=== PATIENT | female | born 1995 | race Two or more races ===

== ENCOUNTER 2021-06-16 05:19 | Inpatient (IN) | payer MEDICAID ==
[~2021-06-16] VITALS: Ht 170.2 cm; Wt 67.5 kg
[2021-06-16 07:30] LABS: COVID AG,FIA SOURCE NASOPHARYNGEAL
[2021-06-16 07:46] LABS: BASOPHILS % (AUTO) 0.6 % (0.0-2.0); EOSINOPHILS % (AUTO) 0.5 % (1.0-6.0); HEMOGLOBIN 14.4 g/dL (12.0-16.0); LYMPHOCYTES # (AUTO) 0.8 K/uL (1.0-4.8); LYMPHOCYTES % (AUTO) 9.9 % (22.0-44.0); MEAN CORPUSCULAR HEMOGLOBIN 30.5 pg (26.0-34.0); MEAN CORPUSCULAR HGB CONC 34.3 G/dL (31.0-37.0); MEAN CORPUSCULAR VOLUME 89 fL (80-100); MONOCYTES # (AUTO) 0.3 K/uL (0.1-1.0); MONOCYTES % (AUTO) 3.8 % (2.0-9.0); NEUTROPHILS # (AUTO) 7.3 K/uL (1.8-7.7); PLATELET COUNT (AUTO) 256 K/uL (150-450); RED BLOOD CELL COUNT(AUTO) 4.71 MIL/uL (4.00-5.20); RED CELL DISTRIBUTION WIDTH 13.2 % (11.5-14.5)
[2021-06-16 07:50] LABS: NEUTROPHILS % (AUTO) 85.2 % (40.0-70.0)
[2021-06-16 07:53] LABS: CALCIUM, TOTAL 9.5 mg/dL (8.8-10.5); CARBON DIOXIDE 25 mmol/L (22-29); CHLORIDE 103 mmol/L (98-107); GLOMERULAR FILTR. RATE CALC > 60 mL/min (>60); GLUCOSE,RANDOM 94 mg/dL (70-110); UREA NITROGEN, BLOOD 15 mg/dL (7-18)
[2021-06-16 07:59] LABS: APPEARANCE,URINE CLOUDY (CLEAR); BILIRUBIN,URINE NEGATIVE (NEGATIVE); GLUCOSE, URINE (UA) NEGATIVE (NEGATIVE); KETONES,URINE >=80 mg/dL (NEGATIVE); LEUKOCYTE ESTERASE ,URINE TRACE (NEGATIVE); NITRATE,URINE POSITIVE (NEGATIVE); OCCULT BLOOD,URINE TRACE (NEGATIVE); PROTEIN,URINE SEE CONFIRM (NEGATIVE); UROBILINOGEN,URINE 0.2 mg/dL (<=1.0)
[2021-06-16 08:08] LABS: ALANINE AMINOTRANSFERASE 21 U/L (12-78); ALBUMIN 4.6 g/dL (3.4-5.0); ALKALINE PHOSPHATASE 65 U/L (46-116); ANION GAP 12 mmol/L (8-16); ASPARTATE AMINOTRANSFERASE 16 U/L (15-37); BILIRUBIN,TOTAL 0.4 mg/dL (0.1-1.0); FREE T4 (FREE THYROXINE) 1.24 ng/dL (0.76-1.46); HCG,QUANTITATIVE < 1 mIU/mL (0-6); POTASSIUM 3.8 mmol/L (3.5-5.1); SODIUM SERUM 140 mmol/L (136-145); THYROID STIMULATING HORMONE 0.93 uIU/mL (0.36-3.74)
[2021-06-16 08:10] LABS: SULFOSALICYLIC ACID,URINE Trace (Negative)
[2021-06-16 08:12] LABS: BACTERIA,URINE Moderate /HPF (None Seen); SQUAMOUS EPITHELIAL CELL,UR Few /LPF (None Seen)
[2021-06-16 08:22] LABS: AMPHET/METH SCREEN,URINE NEGATIVE (NEGATIVE); BARBITURATE SCREEN, URINE NEGATIVE (NEGATIVE); BENZODIAZEPINES SCREEN,URINE NEGATIVE (NEGATIVE); CANNABINOID SCREEN,URINE POSITIVE (NEGATIVE); COCAINE SCREEN,URINE NEGATIVE (NEGATIVE); METHADONE SCREEN, URINE NEGATIVE (NEGATIVE); OPIATE SCREEN,URINE NEGATIVE (NEGATIVE)
[2021-06-16 08:23] LABS: PHENCYCLIDINE SCREEN,URINE NEGATIVE (NEGATIVE)
[2021-06-16] MEDS ORDERED: LORazepam 2 MG TABLET PO ONE (08:30)
[2021-06-16] MEDS ORDERED: NITROFURANTOIN/NITROFURAN MAC 100 MG CAPSULE [MACROBID] PO ONE (08:30)
[2021-06-16] MEDS ORDERED: INFLUENZA VIRUS VACCINE QVS 2021-22 (6MO+)/PF 60 MCG/0.5 ML SYRINGE IM. ONE (13:30)
[2021-06-16 16:20] VITALS: BP 131/77
[2021-06-16] MEDS ORDERED: PETROLATUM,WHITE 28 GM JELLY TP PRN (16:30)
[2021-06-16] MEDS ORDERED: LOPERAMIDE HCL 2 MG CAPSULE PO PRN (16:30)
[2021-06-16] MEDS ORDERED: CloNIDine HCL 0.1 MG TABLET PO PRN (16:30)
[2021-06-16] MEDS ORDERED: ALBUTEROL SULFATE HFA 90 MCG/PUFF 8 GM INHALER IH PRN (16:30)
[2021-06-16] MEDS ORDERED: MAG HYDROX/AL HYDROX/SIMETH ES 30 ML SUSPENSION UDCUP PO PRN (16:30)
[2021-06-16] MEDS ORDERED: GuaiFENesin/D-METHORPHAN [SUGAR-FREE] 200-20MG/10 ML SYRUP UDCUP PO PRN (16:30)
[2021-06-16] MEDS ORDERED: DOCUSATE SODIUM 100 MG CAPSULE PO PRN (16:30)
[2021-06-16] MEDS: NITROFURANTOIN/NITROFURAN MAC 100 MG CAPSULE [MACROBID] PO SCH (16:51)
[2021-06-17 01:00] VITALS: BP 128/82
[2021-06-17 08:39] VITALS: BP 108/77
[2021-06-17] MEDS: NITROFURANTOIN/NITROFURAN MAC 100 MG CAPSULE [MACROBID] PO SCH ×2 (09:40→16:27)
[2021-06-17] MEDS: ARIPiprazole 10 MG TABLET PO SCH ×2 (09:42→09:45)
[2021-06-17 16:18] VITALS: BP 129/79
[2021-06-18 00:39] VITALS: BP 130/81
[2021-06-18] MEDS: LORazepam 2 MG TABLET PO PRN ×2 (05:28→18:32)
[2021-06-18] MEDS: HALOPERIDOL 5 MG TABLET PO PRN ×2 (05:34→20:14)
[2021-06-18 08:36] VITALS: BP 112/70
[2021-06-18] MEDS: NITROFURANTOIN/NITROFURAN MAC 100 MG CAPSULE [MACROBID] PO SCH ×2 (08:58→16:42)
[2021-06-18 17:55] VITALS: BP 109/68
[2021-06-19 00:46] VITALS: BP 115/70
[2021-06-19] MEDS: LORazepam 2 MG TABLET PO PRN ×3 (01:09→21:00)
[2021-06-19 08:20] VITALS: BP 122/64
[2021-06-19] MEDS: NITROFURANTOIN/NITROFURAN MAC 100 MG CAPSULE [MACROBID] PO SCH ×2 (08:43→17:00)
[2021-06-19] MEDS: ARIPiprazole 10 MG TABLET PO SCH (08:44)
[2021-06-19 16:18] VITALS: BP 125/76
[2021-06-20 05:30] VITALS: BP 112/68
[2021-06-20] MEDS: LORazepam 2 MG TABLET PO PRN (05:56)
[2021-06-20] MEDS: HALOPERIDOL 5 MG TABLET PO PRN (05:56)
[2021-06-20] MEDS: MAGNESIUM HYDROXIDE SUSPENSION 30 ML UDCUP PO PRN (06:39)
[2021-06-20 08:25] VITALS: BP 115/74
[2021-06-20] MEDS: NITROFURANTOIN/NITROFURAN MAC 100 MG CAPSULE [MACROBID] PO SCH ×2 (08:50→16:58)
[2021-06-20] MEDS: ARIPiprazole 10 MG TABLET PO SCH (08:50)
[2021-06-20 16:27] VITALS: BP 102/65
[2021-06-20] MEDS: IBUPROFEN 400 MG TABLET PO PRN (21:22)
[2021-06-20] MEDS ORDERED: DiphenhydrAMINE HCL 50 MG/ML VIAL ONE (23:16)
[2021-06-20] MEDS ORDERED: HALOPERIDOL LACTATE 5 MG/ML VIAL ONE (23:16)
[2021-06-20] MEDS ORDERED: LORazepam 2 MG/ML VIAL ONE (23:16)
[2021-06-20] MEDS ORDERED: LORazepam 2 MG/ML VIAL IM ONE (23:30)
[2021-06-20] MEDS ORDERED: DiphenhydrAMINE HCL 50 MG/ML VIAL IM ONE (23:30)
[2021-06-20] MEDS ORDERED: HALOPERIDOL LACTATE 5 MG/ML VIAL IM ONE (23:30)
[2021-06-21 06:23] VITALS: BP 105/68
[2021-06-21 07:36] LABS: GLUCOMETER DEV NAME(LOC) POC.BV
[2021-06-21 08:21] VITALS: BP 102/73
[2021-06-21] MEDS: NITROFURANTOIN/NITROFURAN MAC 100 MG CAPSULE [MACROBID] PO SCH ×2 (08:43→16:04)
[2021-06-21] MEDS: ARIPiprazole 10 MG TABLET PO SCH (08:43)
[2021-06-21] MEDS: IBUPROFEN 400 MG TABLET PO PRN (11:03)
[2021-06-21] MEDS: ONDANSETRON HCL 4 MG TABLET PO PRN (11:05)
[2021-06-21] MEDS: LORazepam 2 MG TABLET PO PRN (15:15)
[2021-06-21 16:09] VITALS: BP 105/68
[2021-06-22 00:11] VITALS: BP 132/81
[2021-06-22] MEDS: IBUPROFEN 400 MG TABLET PO PRN (01:55)
[2021-06-22 08:07] VITALS: BP 120/74
[2021-06-22] MEDS: NITROFURANTOIN/NITROFURAN MAC 100 MG CAPSULE [MACROBID] PO SCH ×2 (09:00→16:42)
[2021-06-22] MEDS: ARIPiprazole 10 MG TABLET PO SCH (09:39)
[2021-06-22] MEDS: LORazepam 2 MG TABLET PO PRN (12:58)
[2021-06-22 16:08] VITALS: BP 131/69
[2021-06-22] MEDS: MELATONIN 3 MG TABLET PO SCH ×2 (21:00→21:53)
[2021-06-22] MEDS: ACETAMINOPHEN 325 MG TABLET PO PRN (21:53)
[2021-06-23 04:11] VITALS: BP 125/66
[2021-06-23] MEDS: IBUPROFEN 400 MG TABLET PO PRN (04:12)
[2021-06-23] MEDS: ONDANSETRON HCL 4 MG TABLET PO PRN (05:23)
[2021-06-23] MEDS: ARIPiprazole 10 MG TABLET PO SCH (08:33)
[2021-06-23] MEDS: LORazepam 2 MG TABLET PO PRN ×2 (08:35→19:42)
[2021-06-23] MEDS: NITROFURANTOIN/NITROFURAN MAC 100 MG CAPSULE [MACROBID] PO SCH ×2 (08:39→08:41)
[2021-06-23] MEDS: HALOPERIDOL 5 MG TABLET PO PRN ×2 (10:36→19:42)
[2021-06-23] MEDS ORDERED: DiphenhydrAMINE HCL 50 MG/ML VIAL IM ONE (11:15)
[2021-06-23] MEDS ORDERED: LORazepam 2 MG/ML VIAL IM ONE (11:15)
[2021-06-23] MEDS ORDERED: HALOPERIDOL LACTATE 5 MG/ML VIAL IM ONE (11:15)
[2021-06-23 19:52] VITALS: BP 125/72
[2021-06-23] MEDS: MELATONIN 3 MG TABLET PO SCH (20:32)
[2021-06-24 06:13] VITALS: BP 104/66
[2021-06-24] MEDS: ACETAMINOPHEN 325 MG TABLET PO PRN (06:57)
[2021-06-24 07:57] VITALS: BP 105/57
[2021-06-24] MEDS: ARIPiprazole 10 MG TABLET PO SCH (08:14)
[2021-06-24] MEDS: HALOPERIDOL 5 MG TABLET PO PRN ×2 (08:14→17:20)
[2021-06-24] MEDS: LORazepam 2 MG TABLET PO PRN ×2 (08:14→17:20)
[2021-06-24 08:19] VITALS: BP 105/57
[2021-06-24] MEDS: NICOTINE 14 MG/24 HOUR PATCH TD PRN (10:22)
[2021-06-24] MEDS: ZOLPIDEM TARTRATE 10 MG TABLET PO PRN (20:33)
[2021-06-24] MEDS: MELATONIN 3 MG TABLET PO SCH (20:33)
[2021-06-25] MEDS: ARIPiprazole 15 MG TABLET PO SCH (08:13)
[2021-06-25] MEDS: LORazepam 2 MG TABLET PO PRN ×2 (08:14→18:39)
[2021-06-25] MEDS ORDERED: LORazepam 2 MG/ML VIAL IM ONE (08:30)
[2021-06-25] MEDS ORDERED: DiphenhydrAMINE HCL 50 MG/ML VIAL IM ONE (08:30)
[2021-06-25] MEDS ORDERED: HALOPERIDOL LACTATE 5 MG/ML VIAL IM ONE (08:30)
[2021-06-25 12:37] VITALS: BP 111/83
[2021-06-25 16:35] VITALS: BP 103/66
[2021-06-25] MEDS: HALOPERIDOL 5 MG TABLET PO PRN (18:49)
[2021-06-25] MEDS: NICOTINE 14 MG/24 HOUR PATCH TD PRN (19:28)
[2021-06-25] MEDS: MELATONIN 3 MG TABLET PO SCH (21:00)
[2021-06-26] MEDS: HALOPERIDOL 5 MG TABLET PO PRN ×2 (08:33→16:29)
[2021-06-26] MEDS: ARIPiprazole 15 MG TABLET PO SCH (08:33)
[2021-06-26] MEDS: LORazepam 2 MG TABLET PO PRN ×2 (08:33→16:29)
[2021-06-26 16:32] VITALS: BP 103/63
[2021-06-26] MEDS: MELATONIN 3 MG TABLET PO SCH (20:47)
[2021-06-27 00:30] VITALS: BP 113/77
[2021-06-27] MEDS: ARIPiprazole 15 MG TABLET PO SCH (07:59)
[2021-06-27 08:32] VITALS: BP 128/61
[2021-06-27] MEDS: MAGNESIUM HYDROXIDE SUSPENSION 30 ML UDCUP PO PRN (08:49)
[2021-06-27] MEDS ORDERED: LORazepam 2 MG/ML VIAL ONE (09:14)
[2021-06-27] MEDS ORDERED: HALOPERIDOL LACTATE 5 MG/ML VIAL ONE (09:14)
[2021-06-27] MEDS ORDERED: DiphenhydrAMINE HCL 50 MG/ML VIAL ONE (09:14)
[2021-06-27] MEDS ORDERED: LORazepam 2 MG/ML VIAL IM ONE (09:15)
[2021-06-27] MEDS ORDERED: HALOPERIDOL LACTATE 5 MG/ML VIAL IM ONE (09:15)
[2021-06-27] MEDS ORDERED: DiphenhydrAMINE HCL 50 MG/ML VIAL IM ONE (09:15)
[2021-06-27] MEDS ORDERED: ARIPiprazole LAUROXIL ER SUSPENSION 882 MG/3.2 ML SYRINGE IM ONE (12:00)
[2021-06-27] MEDS ORDERED: ARIPiprazole LAUROXIL,SUBMICR. ER SUSPENSION 675 MG/2.4 ML SYRINGE IM ONE (12:00)
[2021-06-27 16:39] VITALS: BP 112/65
[2021-06-27] MEDS: MELATONIN 3 MG TABLET PO SCH (21:39)
[2021-06-28 05:16] VITALS: BP 117/70
[2021-06-28] MEDS: ACETAMINOPHEN 325 MG TABLET PO PRN (06:13)
[2021-06-28] MEDS: ARIPiprazole 15 MG TABLET PO SCH (08:15)
[2021-06-28 08:18] VITALS: BP 118/82
[2021-06-28 16:16] VITALS: BP 128/62
[2021-06-28] MEDS: LORazepam 2 MG TABLET PO PRN (18:05)
[2021-06-28] MEDS: MELATONIN 3 MG TABLET PO SCH (20:17)
[2021-06-28] MEDS: ZOLPIDEM TARTRATE 10 MG TABLET PO PRN (20:17)
[2021-06-29 05:06] LABS: HIV 1-2 SCREEN 4TH GEN W/RFLX Non Reactive (Non Reactive)
[2021-06-29 08:06] LABS: HEPATITIS C AB (EIA) <0.1 s/co ratio (0.0-0.9)
[2021-06-29] MEDS: ARIPiprazole 15 MG TABLET PO SCH (08:11)
[2021-06-29 08:45] VITALS: BP 106/63
[2021-06-29] MEDS: LORazepam 2 MG TABLET PO PRN (12:57)
[2021-06-29 16:02] VITALS: BP 131/62
[2021-06-29] MEDS ORDERED: DiphenhydrAMINE HCL 50 MG/ML VIAL IM ONE (16:30)
[2021-06-29] MEDS ORDERED: LORazepam 2 MG/ML VIAL IM ONE (16:30)
[2021-06-29] MEDS ORDERED: HALOPERIDOL LACTATE 5 MG/ML VIAL IM ONE (16:30)
[2021-06-29] MEDS: MELATONIN 3 MG TABLET PO SCH (20:32)
[2021-06-30 01:00] VITALS: BP 126/72
[2021-06-30] MEDS: ZOLPIDEM TARTRATE 10 MG TABLET PO PRN ×2 (01:14→20:24)
[2021-06-30 08:28] VITALS: BP 97/67
[2021-06-30] MEDS: ARIPiprazole 15 MG TABLET PO SCH (09:00)
[2021-06-30] MEDS: FLUoxetine HCL 20 MG CAPSULE PO SCH (10:05)
[2021-06-30 16:29] VITALS: BP 130/76
[2021-06-30] MEDS: MELATONIN 3 MG TABLET PO SCH (20:04)
[2021-07-01 02:50] VITALS: BP 122/68
[2021-07-01] MEDS: LORazepam 2 MG TABLET PO PRN ×3 (02:50→18:46)
[2021-07-01] MEDS ORDERED: ACETAMINOPHEN 325 MG TABLET PO PRN (05:45)
[2021-07-01 08:02] VITALS: BP 106/67
[2021-07-01] MEDS: FLUoxetine HCL 20 MG CAPSULE PO SCH (08:07)
[2021-07-01] MEDS: ARIPiprazole 15 MG TABLET PO SCH (08:08)
[2021-07-01 09:36] LABS: GLUCOMETER DEV NAME(LOC) POC.BV
[2021-07-01 16:23] VITALS: BP 118/84
[2021-07-01] MEDS: MELATONIN 3 MG TABLET PO SCH (20:01)
[2021-07-01] MEDS: ZOLPIDEM TARTRATE 10 MG TABLET PO PRN (20:23)
[2021-07-02 03:00] VITALS: BP 124/78
[2021-07-02] MEDS: LORazepam 2 MG TABLET PO PRN (06:12)
[2021-07-02] MEDS ORDERED: PROZ20 PO (07:52)
[2021-07-02] MEDS ORDERED: ARIP15TA27 PO (07:52)
[2021-07-02] MEDS: FLUoxetine HCL 20 MG CAPSULE PO SCH (07:59)
[2021-07-02] MEDS: ARIPiprazole 15 MG TABLET PO SCH (08:01)
[2021-07-02 08:02] VITALS: BP 111/65
[2021-07-27] MEDS ORDERED: ARIPiprazole LAUROXIL ER SUSPENSION 882 MG/3.2 ML SYRINGE IM SCH (09:00)
== END 2021-07-02 12:46 | disposition home or self-care (01) | DRG 753 ==
LOC: EMS 05:31 → B2S 10:23 → B3A 06-25 18:03
PROVIDERS: ADMIT Psychiatry & Neurology Psychiatry; ATTEND Psychiatry & Neurology Psychiatry
DX: F31.64 Bipolar disorder, current episode mixed, severe, with psychotic features (principal); R45.851 Suicidal ideations; F12.10 Cannabis abuse, uncomplicated; G47.00 Insomnia, unspecified; K59.00 Constipation, unspecified; N39.0 Urinary tract infection, site not specified; Z59.00 Homelessness unspecified; Z79.899 Other long term (current) drug therapy; Z20.822 Contact with and (suspected) exposure to COVID-19
CPT/HCPCS: 80053; 80061; 80074; 81001; 81002; 84439; 84443; 84702; 85025; 86592; 87086; 87389; 99285; G0480; J1200; J1630; J2060; Q0162; Q9967